=== PATIENT | male | born 1970 | race Caucasian/White ===

== ENCOUNTER 2019-11-29 12:17 | Emergency (ER) | payer OTHER, SELFPAY ==
[~2019-11-29] VITALS: Ht 167.6 cm; Wt 68.0 kg
--- NOTE | 2019-11-29 12:30 | NUR ---
AMBULATED TO BED 9
[2019-11-29 12:39] VITALS: BP 139/79
--- NOTE | 2019-11-29 12:39 | NUR ---
49 y/o m c/c dyspnea x 5 days. pt denies cough or being in contact with positive covid people. does not have difficulty at night sleeping but sob persist in daytime. per pt complies with stay at home order and only does the essential needs. pt denies smoking. nka. no hx. no rx. no n/v/d. lung sounds clear, pt presents in no respiratory distress. 97%RA. pt placed in full fowlers. side rail x1.
--- NOTE | 2019-11-29 12:39 | NUR ---
covid 19 hospital policy followed: pt given mask before entering ER pt triaged at covid suspect tent pt placed in covid room covid sign at bedside covid sign in sheet at bedside full ppe nurse
[2019-11-29] MEDS ORDERED: ACETAMINOPHEN EXTRA STRENGTH 500 MG TAB PO ONE (12:50)
--- NOTE | 2019-11-29 13:35 | NUR ---
flu swab collected covid swab collected urine void collected ekg performed
[2019-11-29 13:44] LABS: APPEARANCE,URINE CLEAR (CLEAR); BILIRUBIN,URINE NEGATIVE (NEGATIVE); BLOOD, URINE TRACE-I (NEGATIVE); COLOR,URINE YELLOW (YELLOW); LEUKOCYTE ESTERASE ,URINE NEGATIVE (NEGATIVE); NITRITE, URINE NEGATIVE (NEGATIVE); PH,URINE 5.5 (5.0-9.0); UGLUCOSE TRACE (NEGATIVE)
--- NOTE | 2019-11-29 13:47 | NUR ---
pt resting in bed, side rail x1
--- NOTE | 2019-11-29 13:47 | NUR ---
[facility] covid paper test swab taken to lab
[2019-11-29 14:04] LABS: ANION GAP 15.5 (8-16); CREATININE 1.3 mg/dL (0.6-1.3); POTASSIUM 3.5 mmol/L (3.5-5.1)
[2019-11-29 14:14] LABS: ALBUMIN 3.8 g/dL (3.4-5.0); TOTAL BILIRUBIN 0.7 mg/dL (0.0-1.0)
[2019-11-29 14:39] LABS: BASOPHILS # (AUTO) 0.1 K/uL (0.00-0.22); BASOPHILS % (AUTO) 0.7 % (0.0-2.0); EOSINOPHILS # (AUTO) 0.3 K/uL (0-0.4); EOSINOPHILS % (AUTO) 3.5 % (0.0-4.0); HEMATOCRIT 46.2 % (36-52); HEMOGLOBIN 15.4 g/dL (12.0-18.0); LYMPHOCYTES # (AUTO) 2.2 K/uL (2.0-11.5); MEAN CORPUSCULAR HEMOGLOBIN 29 pg (27-31); MEAN CORPUSCULAR HGB CONC 33 g/dL (33-37); MEAN CORPUSCULAR VOLUME 87.7 fL (80-94); MONOCYTES # (AUTO) 0.7 K/uL (0.8-1.0); MONOCYTES % (AUTO) 7.5 % (1.7-9.3); NEUTROPHILS # (AUTO) 5.5 K/uL (1.8-7.7); NEUTROPHILS % (AUTO) 63.3 % (42.2-75.2); PLATELET COUNT (AUTO) 279 K/uL (140-450); RED BLOOD CELL COUNT(AUTO) 5.27 MIL/uL (4.20-6.10); RED CELL DISTRIBUTION WIDTH 13.1 % (11.6-13.7); WHITE BLOOD COUNT (AUTO) 8.7 K/uL (4.8-10.8)
[2019-11-29 14:40] LABS: RBC,URINE 0-5 /HPF (0-5); WBC,URINE 0-5 /HPF (0-5)
--- NOTE | 2019-11-29 14:59 | NUR ---
pt resting in bed, side rail x1
[2019-11-29 15:17] VITALS: BP 126/72
--- NOTE | 2019-11-29 15:17 | NUR ---
Patient discharged with v/s stable. Written and verbal after care instructions given and explained. Patient verbalized understanding. Ambulatory with steady gait. All questions addressed prior to discharge. Advised to follow up with PMD.
== END 2019-11-29 15:17 | disposition home or self-care (01) ==
LOC: MED 12:17 → EEVIPCON 12:17 → MED 15:17
DX: R06.02 Shortness of breath (principal); Z20.828 Contact with and (suspected) exposure to other viral communicable diseases
CPT/HCPCS: 36415; 71045; 80053; 81001; 84484; 85025; 85379; 87635; 87804; 93005; 99285; Q0092; 99284

== ENCOUNTER 2023-07-19 09:13 | Emergency (ER) | payer OTHER ==
[~2023-07-19] VITALS: Ht 162.6 cm; Wt 66.2 kg
[2023-07-19 09:40] VITALS: BP 154/99; PULSE 95; RESP 18; TEMP 98.9; O2SAT 97
[2023-07-19 11:50] VITALS: O2SAT 97
[2023-07-19] MEDS ORDERED: DIPH25SG5 PO (11:58)
[2023-07-19] MEDS ORDERED: PRED20TA5 PO (11:58)
== END 2023-07-19 12:03 | disposition home or self-care (01) ==
LOC: MED 09:13
DX: R21 Rash and other nonspecific skin eruption (principal); L29.9 Pruritus, unspecified
CPT/HCPCS: 99283